=== PATIENT | male | born 1965 | race Caucasian/White ===

== ENCOUNTER 2022-02-03 01:02 | Emergency (ER) | payer OTHER, MEDICAID ==
[~2022-02-03] VITALS: Ht 172.7 cm; Wt 80.7 kg
[2022-02-03 01:10] VITALS: BP 154/99
--- NOTE | 2022-02-03 01:10 | NUR ---
MISTY BEST TAKEN TO BED #9
--- NOTE | 2022-02-03 01:33 | NUR ---
56 YO M BIBA FROM HOME WITH C/C OF 10/10 LOWER BACK PAIN. PT STATES HE WAS WORKING 1HR AGO DOING "HEAVY SHIT" LIKE SHOVELING AND MOVING TRASH AND THREW HIS BACK OUT. PT STATES HE HAS A CHRONIC BACK PAIN HISTORY. PT SIDE LYING AND DOESNT WANT TO MOVE D/T PAIN. HX:CHRONIC BACK PAIN NKA
[2022-02-03] MEDS ORDERED: KETOROLAC 60 MG/2 ML VIAL IM ONE (02:30)
[2022-02-03] MEDS ORDERED: HYDROcodone/APAP 5/325 MG 1 TAB TAB PO ONE (02:30)
[2022-02-03] MEDS ORDERED: IBUP-2218 PO (02:32)
--- NOTE | 2022-02-03 03:29 | NUR ---
WENT IN TO DISCHARGE PT. PT WAS GRINNING AND STATED "BABY I KNOW A PLACEBO WHEN I GET IT". INFORMED PT HE WAS GIVEN [place]CO AND IT TAKES ABOUR 45MINS- 1HR TO WORK. PT WAS NAKED FROM WAIST DOWN AND SAID "ILL GO OUT LIKE THIS AND WALK AROUND LIKE A NUT AND YOU WILL BE LIABLE" PT HAS APPROPRIATE CLOTHING WELL SHOES. PT IS AGGRESSIVE, LJ CUTLER INFORMED, WENT BEDSIDE TO SPEAK TO PT. SECURITY CALLED.
[2022-02-03 03:34] VITALS: BP 154/99
--- NOTE | 2022-02-03 03:35 | NUR ---
0200- PT WAS GIVEN A SANDWICH AND SODA.
== END 2022-02-03 03:34 | disposition home or self-care (01) ==
LOC: MED 01:02
DX: M54.50 Low back pain, unspecified (principal)
CPT/HCPCS: 96372; 99283; J1885